=== PATIENT | female | born 1945 | race Caucasian/White ===

== ENCOUNTER → 2016-12-01 | Outpatient (CLI) | payer MEDICARE, BC ==
[~2016-12-01] MED LIST: ATOR10 PO; CALTTAB PO; ESTR1TAB PO; LEVO100T4 PO; LEVO100T5 PO; LIPI10TA PO; MULT-6 PO; PAXI20TA PO; PAXI20TA26 PO; PERC10TA27 PO; PREM0.622 PO; TAMS0.4C67 PO; ZOFR4TAB3 SL; [UNRECOGNIZED DRUG - OTHER] PO
[2016-12-01 14:06] LABS: AUTOMATED NEUTROPHIL # 3.9 TH/MM3 (1.8-7.7); BASOPHIL % 0.7 % (0.0-2.0); EOSINOPHIL % 0.7 % (0.0-4.0); HEMATOCRIT 40.3 % (35.0-46.0); HEMO FLAGS DIFF FINAL; LYMPH % 20.9 % (9.0-44.0); LYMPHOCYTE # 1.2 TH/MM3 (1.0-4.8); MEAN CELL VOLUME 88.1 FL (80.0-100.0); MEAN CORPUSCULAR HEMOGLOBIN 29.7 PG (27.0-34.0); MEAN CORPUSCULAR HGB CONC 33.7 % (32.0-36.0); MONO % 7.6 % (0.0-8.0); NEUT % 70.1 % (16.0-70.0); PLATELET COUNT 227 TH/MM3 (150-450); RED BLOOD COUNT 4.57 MIL/MM3 (4.00-5.30); RED CELL DISTRIBUTION WIDTH 12.6 % (11.6-17.2); WHITE BLOOD COUNT 5.6 TH/MM3 (4.0-11.0)
== END ==
LOC: CPRE 11:54
PROVIDERS: ATTEND Ophthalmology
DX: Z01.812 Encounter for preprocedural laboratory examination (principal); H26.9 Unspecified cataract
CPT/HCPCS: 36415; 85025

== ENCOUNTER → 2016-12-08 | Day surgery (SDC) | payer MEDICARE, BC ==
--- NOTE | 2016-12-01 18:27 | MH ---
cc: ENIO STEWART DATE OF ADMISSION 12/08/2016 ADMISSION DIAGNOSIS Cataract left eye. HISTORY OF PRESENT ILLNESS This 71-year-old white female is coming through [facility] surgery for the purpose of a lens extraction of the left eye with intraocular lens implant under local anesthesia. She has noted decreasing visual acuity interfering with her daily activities and elected to have the above procedure. Her best corrected visual acuity in room light is 20/30 -2 in the right eye, 20/40 -1 in the left. PAST MEDICAL HISTORY The patient has a history of: 1. Hypothyroid. 2. Cholesterol problems. 3. Arthritis. 4. Herniated disk. PAST SURGICAL HISTORY surgical history includes: 1. Thyroid growth removal. 2. Hysterectomy. 3. Surgery on the urethra. 4. Upper right lobe lung cancer surgery. MEDICATIONS Daily medications include: 1. Paxil. 2. Estradiol. 3. Synthroid. 4. Lipitor. 5. Caltrate. 6. Multivitamins. 7. B12 twice per week. ALLERGIES SHE IS ALLERGIC TO SULFA, BIAXIN, AND CECLOR. SOCIAL HISTORY She is a 1-1/2 pack per day smoker for 30 years and does not drink alcohol. FAMILY HISTORY Positive for uncle with cataracts and aunt with macular degeneration. REVIEW OF SYSTEMS HEAD: Patient denies severe headaches, dizziness or recent head injury. EARS: Patient denies hearing loss, ear pain, discharge or ringing in the ears. NOSE: The patient has a history of sinus problems that occasional cause nasal discharge. Patient denies obstruction or frequent colds. MOUTH AND THROAT: Patient denies soreness of the mouth or tongue, bleeding gums, trouble swallowing, changes in voice or sore throat. NECK: Patient denies neck pain or swelling, limitation of neck movement or neck injury. CARDIOPULMONARY SYSTEM: She gets palpitations at times occasional with indigestion. Patient denies shortness of breath, orthopnea, chronic cough, sputum production, hemoptysis, chest pain, wheezing or light-headedness. GI SYSTEM: Patient denies poor appetite, nausea, vomiting, abdominal pain, ulcers, hemorrhoids or change in bowel habits. SYSTEM: The patient denies urinary frequency, dysuria, change in urine color. NERVOUS SYSTEM: Patient denies convulsions, vertigo, stroke, numbness or weakness. PHYSICAL EXAMINATION VITAL SIGNS: Blood pressure 118/64, pulse 64, respirations 16. HEAD: Normocephalic, atraumatic. NOSE: Without rhinorrhea. THROAT: Clear. NECK: Supple. CHEST: Clear. HEART: Regular rhythm. ABDOMEN: Without tenderness. EXTREMITIES: Without edema. NEUROLOGICAL: Within normal limits. MENTAL STATUS: Within normal limits. EYE EXAMINATION: The patient's best corrected visual acuity in room light is 20/30 -2 in the right eye and 20/40 -1 in the left. Visual longoria are full to confrontation testing. Extraocular muscle exam reveals full versions with orthophoria at distance and exophoria at near. Pupils are 3 mm equal, round, react to light without afferent defect. Anterior segment examination reveals nuclear sclerotic and posterior subcapsular cataract in the left eye and mild posterior cortical cataract in the right. Intraocular pressures 17 in the right eye, 15 in the left by applanation tonometry. Dilated fundus exam revealed sharp disks with cup-to-disk ratio 0.3 bilaterally. The macula is clear. The background in the within normal limits. IMPRESSION Cataract left eye greater than right. PLAN Lens extraction of the left eye with intraocular lens implant under local anesthesia through [facility] surgery. The patient has been cleared medically. She has been counseled as to the risks, benefits and alternatives and elected to proceed. I feel that cataract surgery will improve the quality of life and activities of daily living in this patient. MD MELVA Mahoney/THANH /4:55 PM /6:12 PM
[~2016-12-08] VITALS: Ht 157.5 cm; Wt 51.5 kg
[~2016-12-08] MED LIST changes: +ACETYLCHOLINE CHL OPHT SOLN 1:100 2 ML VIAL ONE; -ATOR10 PO; +EPINEPHrine HCL (1:1000) 1 MG/ML VIAL ONE; +HYALURONIDASE/LIDOCAINE/BUPIVACAINE 4.5 ML SYR LEFT EYE ONE; +HYALURONIDASE/LIDOCAINE/BUPIVACAINE 4.5 ML SYR ONE; +HYALURONIDASE/LIDOCAINE/BUPIVACAINE 6 ML SYR LEFT EYE ONE; +HYALURONIDASE/LIDOCAINE/BUPIVACAINE 6 ML SYR ONE; -LEVO100T4 PO; +MIDAZOLAM HCL 2 MG/2 ML VIAL ONE; -PAXI20TA26 PO; -PERC10TA27 PO; -PREM0.622 PO; +PROPARACAINE HCL 0.5% OPHT SOLN 15 ML BTL LEFT EYE ONE; +PROPOFOL 200 MG/20 ML AMP ONE; +SODIUM CHLORID 0.9% 500 ML INJ 500 ML ONE; -TAMS0.4C67 PO; +VISCOAT OPHT IRRIG SOLN 0.75 ML SYRINGE LEFT EYE ONE; -ZOFR4TAB3 SL; -[UNRECOGNIZED DRUG - OTHER] PO
[2016-12-08 08:35] VITALS: BP 142/73; PULSE 55; RESP 16; TEMP 97.8; O2SAT 99
[2016-12-08] MEDS: DICLOFENAC SOD 0.1% OPHT SOLN 2.5 ML BTL LEFT EYE SCH ×4 (08:45→08:54)
[2016-12-08] MEDS: TROPICAMIDE 1% OPHT SOLN 15 ML BTL LEFT EYE SCH ×4 (08:45→08:54)
[2016-12-08] MEDS: PHENYLEPHRINE HCL 2.5% OPTH SOLN 2 ML BTL LEFT EYE SCH ×4 (08:45→08:54)
[2016-12-08] MEDS: GATIFLOXACIN 0.5% OPHT SOLN 2.5 ML BTL LEFT EYE SCH ×4 (08:45→08:54)
[2016-12-08] MEDS: CYCLOPENTOLATE HCL 1% OPHT SOLN 2 ML BTL LEFT EYE SCH ×4 (08:45→08:54)
[2016-12-08 08:57] VITALS: PULSE 55
[2016-12-08 09:35] VITALS: PULSE 51
[2016-12-08] MEDS: PILOCARPINE HCL 2% OPHT SOLN 15 ML BTL ONE ×2 (10:57→11:22)
[2016-12-08] MEDS: TOBRAMYCIN/DEXAMETHASONE OPTH OINT 3.5 GM TUBE ONE ×2 (10:58→11:23)
[2016-12-08 11:30] VITALS: TEMP 98.5
[2016-12-08 11:55] VITALS: BP 114/55; PULSE 50; RESP 14; O2SAT 99
--- NOTE | 2016-12-10 21:39 | MP ---
cc: ENIO BHANDARI DATE OF SURGERY: 12/08/2016 PREOPERATIVE DIAGNOSIS: Cataract left eye. POSTOPERATIVE DIAGNOSIS: Cataract left eye. OPERATION: Extracapsular cataract extraction with posterior chamber intraocular lens implant by phacoemulsification, left eye. SURGEON: Enio Bhandari M.D. ANESTHESIA: Local. COMPLICATIONS: None. INDICATIONS: See history and physical previously dictated. OPERATIVE PROCEDURE: The patient had adequate retrobulbar and eyelid blocks administered in the holding area and was brought to the operating room. The left eye was prepped and draped in the usual sterile ophthalmic manner. A lid speculum was inserted in the left eye. A 4-0 silk bridle suture was placed through the conjunctiva near the superior rectus muscle and it was tagged to the drape. A fornix-based conjunctival flap was prepared spanning approximately 5 mm in width. Hemostasis was obtained with wet-field cautery. A 3.5 mm groove was made 1 mm from the limbus and dissected up to the limbus in the form of a scleral pocket incision. A stab incision was then made at the 2 o'clock position. Viscoelastic was injected into the anterior chamber. The anterior chamber was entered with a 2.75 mm keratome through the scleral pocket incision. A 360 degree continuous curvilinear capsulorrhexis was then performed. Hydrodissection was utilized to divide the nucleus into inner and outer components and to separate the cortex from the capsule. Phacoemulsification was then utilized to remove the nucleus. The outer nuclear layer was removed with irrigation and aspiration and short bursts of ultrasound as necessary. The cortex was removed with the irrigation/aspiration handpiece. The posterior capsule was polished with the capsule polisher. Viscoelastic was injected into the capsular bag. The intraocular lens was inspected and found to be in good condition. The lens utilized was an Ravi, model number SA60 [id number] with a power of +23 diopters. The lens was inserted into the capsular bag. The viscoelastic in the anterior chamber was then removed with the irrigation-aspiration handpiece. Viscoelastic was also removed from beneath the intraocular lens. The anterior chamber was filled with Miochol-E through the stab incision and pressurized. The wound was checked for leaks at this pressure and normalized pressure, and there were none. The 4-0 bridle suture was removed. The conjunctival flap was brought down over the wound and secured with cautery. Pilocarpine 2% eye drops were instilled topically. The lid speculum was removed. TobraDex ophthalmic ointment was applied. The eye was double patched and shielded. The patient tolerated the procedure well and left the Operating Room in satisfactory condition. MD MELVA Mahoney/SASHA /11:33 AM /9:35 PM
== END | disposition home or self-care (01) ==
LOC: CSDC 08:00
PROVIDERS: ATTEND Ophthalmology
DX: H25.812 Combined forms of age-related cataract, left eye (principal); E03.9 Hypothyroidism, unspecified; F17.210 Nicotine dependence, cigarettes, uncomplicated; Z83.518 Family history of other specified eye disorder
CPT/HCPCS: 00142; 66984; J0171; J2250; J7040; V2632

== ENCOUNTER → 2017-01-26 | Outpatient (CLI) | payer MEDICARE, BC ==
[~2017-01-26] MED LIST changes: -ACETYLCHOLINE CHL OPHT SOLN 1:100 2 ML VIAL ONE; -EPINEPHrine HCL (1:1000) 1 MG/ML VIAL ONE; -HYALURONIDASE/LIDOCAINE/BUPIVACAINE 4.5 ML SYR LEFT EYE ONE; -HYALURONIDASE/LIDOCAINE/BUPIVACAINE 4.5 ML SYR ONE; -HYALURONIDASE/LIDOCAINE/BUPIVACAINE 6 ML SYR LEFT EYE ONE; -HYALURONIDASE/LIDOCAINE/BUPIVACAINE 6 ML SYR ONE; -MIDAZOLAM HCL 2 MG/2 ML VIAL ONE; -PROPARACAINE HCL 0.5% OPHT SOLN 15 ML BTL LEFT EYE ONE; -PROPOFOL 200 MG/20 ML AMP ONE; -SODIUM CHLORID 0.9% 500 ML INJ 500 ML ONE; -VISCOAT OPHT IRRIG SOLN 0.75 ML SYRINGE LEFT EYE ONE
[2017-01-26 10:38] LABS: AUTOMATED NEUTROPHIL # 3.1 TH/MM3 (1.8-7.7); EOSINOPHIL # 0.1 TH/MM3 (0-0.4); EOSINOPHIL % 1.6 % (0.0-4.0); HEMATOCRIT 38.3 % (35.0-46.0); HEMO FLAGS DIFF FINAL; LYMPH % 24.3 % (9.0-44.0); LYMPHOCYTE # 1.1 TH/MM3 (1.0-4.8); MEAN CELL VOLUME 89.5 FL (80.0-100.0); MEAN CORPUSCULAR HEMOGLOBIN 30.2 PG (27.0-34.0); MEAN CORPUSCULAR HGB CONC 33.8 % (32.0-36.0); MONO % 8.2 % (0.0-8.0); NEUT % 64.9 % (16.0-70.0); PLATELET COUNT 216 TH/MM3 (150-450); RED BLOOD COUNT 4.28 MIL/MM3 (4.00-5.30); RED CELL DISTRIBUTION WIDTH 12.5 % (11.6-17.2); WHITE BLOOD COUNT 4.7 TH/MM3 (4.0-11.0)
== END ==
LOC: PHPRE 09:13
PROVIDERS: ATTEND Ophthalmology
DX: Z01.812 Encounter for preprocedural laboratory examination (principal); H26.9 Unspecified cataract
CPT/HCPCS: 85025

== ENCOUNTER → 2017-02-02 | Day surgery (SDC) | payer MEDICARE, BC ==
[~2017-02-02] VITALS: Ht 157.5 cm; Wt 52.0 kg
[~2017-02-02] MED LIST changes: +ACETYLCHOLINE CHL OPHT SOLN 1:100 2 ML VIAL ONE; +CYCLOPENTOLATE HCL 1% OPHT SOLN 2 ML BTL ONE; +DICLOFENAC SOD 0.1% OPHT SOLN 2.5 ML BTL ONE; +EPINEPHrine HCL (1:1000) 1 MG/ML VIAL ONE; +GATIFLOXACIN 0.5% OPHT SOLN 2.5 ML BTL ONE; +HYALURONIDASE/LIDOCAINE/BUPIVACAINE 4.5 ML SYR ONE; +HYALURONIDASE/LIDOCAINE/BUPIVACAINE 6 ML SYR ONE; +PHENYLEPHRINE HCL 2.5% OPTH SOLN 2 ML BTL ONE; +PROPARACAINE HCL 0.5% OPHT SOLN 15 ML BTL ONE; +PROPOFOL 200 MG/20 ML AMP ONE; +SODIUM CHLORID 0.9% 500 ML INJ 500 ML ONE; +TETRACAINE 0.5% OPTH SOLN 4 ML BTL ONE; +TROPICAMIDE 1% OPHT SOLN 15 ML BTL ONE; +VISCOAT OPHT IRRIG SOLN 0.75 ML SYRINGE RIGHT EYE ONE
[2017-02-02 06:24] VITALS: BP 142/77; PULSE 54; RESP 16; TEMP 98.2; O2SAT 99
[2017-02-02 06:45] VITALS: PULSE 54
[2017-02-02 07:03] VITALS: PULSE 55
[2017-02-02] MEDS: TOBRAMYCIN/DEXAMETHASONE OPTH OINT 3.5 GM TUBE ONE ×2 (07:48→08:16)
[2017-02-02] MEDS: PILOCARPINE HCL 2% OPHT SOLN 15 ML BTL ONE ×2 (07:48→08:16)
[2017-02-02 08:23] VITALS: TEMP 97.8
[2017-02-02 08:45] VITALS: BP 129/77; PULSE 49; RESP 14; O2SAT 98
--- NOTE | 2017-02-02 09:46 | MH ---
cc: ENIO STEWART DATE OF ADMISSION: 02/02/2017 ADMISSION DIAGNOSIS Cataract right eye. HISTORY OF PRESENT ILLNESS This 71-year-old white female is coming through [facility] for the purpose of a lens extraction of the right eye with intraocular lens implant under local anesthesia. She had a similar procedure on the left eye in November and did well postoperatively, now requests cataract surgery on her right eye. Her best corrected visual acuity is 20/40 -2 in the right eye in room light and 20/20 -1 in the left eye. PAST MEDICAL HISTORY 1. The patient has a history of hypothyroid problems. 2. Cholesterol problems. 3. Arthritis. 4. Herniated disk. SURGICAL HISTORY 1. Thyroid growth removal. 2. Hysterectomy. 3. Urethral surgery. 4. Lung cancer on the upper right lobe. 5. She has also had the above-mentioned cataract surgery in the left eye in November DAILY MEDICATIONS 1. Paxil. 2. Estradiol. 3. Synthroid. 4. Lipitor. 5. Caltrate. 6. Multivitamins, 7. B12. ALLERGIES SULFA. BIAXIN. CECLOR. SOCIAL HISTORY She is a one-half pack per day smoker for 30 years and does not drink alcohol. FAMILY HISTORY Positive for uncle with cataract and aunt with macular degeneration. REVIEW OF SYSTEMS HEAD: Patient denies severe headaches, dizziness or recent head injury. EARS: Patient denies hearing loss, ear pain, discharge or ringing in the ears. NOSE: Patient occasionally has nasal discharge from sinus problems. She denies obstruction or frequent colds. MOUTH AND THROAT: Patient denies soreness of the mouth or tongue, bleeding gums, trouble swallowing, changes in voice or sore throat. NECK: Patient denies neck pain or swelling, limitation of neck movement or neck injury. CARDIOPULMONARY SYSTEM: She has occasional palpitations. The patient denies shortness of breath, orthopnea, chronic cough, sputum production, hemoptysis, chest pain, wheezing or light-headedness. GI SYSTEM: The patient reports occasional indigestion. Patient denies poor appetite, nausea, vomiting, abdominal pain, ulcers, hemorrhoids or change in bowel habits. SYSTEM: The patient denies urinary frequency, dysuria, change in urine color. NERVOUS SYSTEM: Patient denies convulsions, vertigo, stroke, numbness or weakness. positives patient occasionally has nasal discharge from sinus problems. She has occasional palpitations and occasional indigestion the rest is negative. PHYSICAL EXAMINATION VITAL SIGNS: Blood pressure 124/68, pulse 64, respirations 16. HEAD: Normocephalic, atraumatic. NOSE: Without rhinorrhea. THROAT: Clear. NECK: Supple. CHEST: Clear. HEART: Regular rhythm. ABDOMEN: Without tenderness. EXTREMITIES: Without edema. NEUROLOGIC: Within normal limits. MENTAL STATUS: Within normal limits. EYE EXAMINATION The patient's best corrected visual acuity in room light is 20/40 -2 in the right eye and 20/20 -1 in the left. The visual longoria are full to confrontation testing. Extraocular muscle exam reveals full versions with orthophoria in the distance and exophoria at near. Pupils are 3-mm, equal, round, reactive to light without afferent defect. Anterior segment examination reveals nuclear sclerotic and cortical cataract change in the right eye and a posterior chamber intraocular lens in the left. Intraocular pressure is 16 in the right eye and 15 in the left by applanation tonometry. Dilated fundus exam revealed sharp disks with cup-to-disk ratio of 0.3 bilaterally. The macula is clear. The background is within normal limits. IMPRESSION 1. Cataract right eye. 2. Pseudophakia left eye. PLAN Lens extraction of the right eye with intraocular lens implant under local anesthesia through [facility]. MD MELVA Mahoney/JOVANNI /12:40 PM /8:37 AM
--- NOTE | 2017-02-04 13:00 | MP ---
cc: [facility] MATY PATJEREMY DATE OF SURGERY 02/02/2017 PREOPERATIVE DIAGNOSIS Cataract right eye. POSTOPERATIVE DIAGNOSIS Cataract right eye. OPERATION Extracapsular cataract extraction with posterior chamber intraocular lens implant by phacoemulsification, right eye. SURGEON Jeremy Bhandari M.D. ANESTHESIA Local COMPLICATIONS None INDICATIONS See history and physical previously dictated. OPERATIVE PROCEDURE The patient had adequate retrobulbar and eyelid blocks administered in the holding area and was brought to the operating room. The right eye was prepped and draped in the usual sterile ophthalmic manner. A lid speculum was inserted in the right eye. A 4-0 silk bridle suture was placed through the conjunctiva near the superior rectus muscle and it was tagged to the drape. A fornix-based conjunctival flap was prepared spanning approximately 5 mm in width. Hemostasis was obtained with wet-field cautery. A 3.5 mm groove was made 1 mm from the limbus and dissected up to the limbus in the form of a scleral pocket incision. A stab incision was then made at the 2 o'clock position. Viscoelastic was injected into the anterior chamber. The anterior chamber was entered with a 2.75 mm keratome through the scleral pocket incision. A 360 degree continuous curvilinear capsulorrhexis was then performed. Hydrodissection was utilized to divide the nucleus into inner and outer components and to separate the cortex from the capsule. Phacoemulsification was then utilized to remove the nucleus. The outer nuclear layer was removed with irrigation and aspiration and short bursts of ultrasound as necessary. The cortex was removed with the irrigation/aspiration handpiece. The posterior capsule was polished with the capsule polisher. Viscoelastic was injected into the capsular bag. The intraocular lens was inspected and found to be in good condition. The lens utilized was a Ravi, model number [id number] with a power of +23.5 diopters. The lens was inserted into the capsular bag. The viscoelastic in the anterior chamber was then removed with the irrigation-aspiration handpiece. Viscoelastic was also removed from beneath the intraocular lens. The anterior chamber was filled with Miochol-E through the stab incision and pressurized. The wound was checked for leaks at this pressure and normalized pressure and there were none. The 4-0 bridle suture was removed. The conjunctival flap was brought down over the wound and secured with cautery. Pilocarpine 2% eye drops were instilled topically. The lid speculum was removed. TobraDex ophthalmic ointment was applied. The eye was double patched and shielded. The patient tolerated the procedure well and left the Operating Room in satisfactory condition. JeremyMD MELVA Cifuentes/ZULEYMA /7:32 AM /11:46 AM
== END | disposition home or self-care (01) ==
LOC: PHSDC 06:00
PROVIDERS: ATTEND Ophthalmology
DX: H25.11 Age-related nuclear cataract, right eye (principal); Z88.2 Allergy status to sulfonamides; Z88.0 Allergy status to penicillin; Z88.8 Allergy status to other drugs, medicaments and biological substances; E03.9 Hypothyroidism, unspecified; E78.00 Pure hypercholesterolemia, unspecified; M19.90 Unspecified osteoarthritis, unspecified site
CPT/HCPCS: 00142; 66984; J0171; J7040; V2632